=== PATIENT | male | born 1970 | race Caucasian/White ===

== ENCOUNTER 2017-07-01 02:03 | Emergency (ER) | payer BC ==
[2017-07-01] MEDS ORDERED: Aspirin 325 mg EC Tablets PO STA (02:49)
[2017-07-01] MEDS ORDERED: Alum-Mag Hydrox-Simethicone Susp (30 mL) PO STA (02:49)
[2017-07-01] MEDS ORDERED: Aluminum Hydroxide/Magnesium Hydroxide Susp (30 mL) ONE (02:58)
[2017-07-01 03:11] LABS: BASO # 0.1 K/uL (0.0-0.2); EOS # 0.2 K/uL (0.0-0.7); EOS % 2.6 % (0.0-4.0); HEMOGLOBIN 14.7 g/dL (12.0-18.0); LYMPH # 2.7 K/uL (1.0-4.3); LYMPH % 37.1 % (20.0-40.0); MEAN CELL VOLUME 83.4 fL (80.0-94.0); MEAN CORPUSCULAR HEMOGLOBIN 28.8 pg (27.0-31.0); MEAN CORPUSCULAR HGB CONC 34.5 g/dL (33.0-37.0); MEAN PLATELET VOLUME 8.8 fL (7.2-11.7); MONO # 0.6 K/uL (0.0-0.8); MONO % 8.7 % (0.0-10.0); NEUT # 3.6 K/uL (1.8-7.0); NEUT % 50.6 % (50.0-75.0); NRBC % 0.1 % (0.0-2.0); RBC 5.12 Mil/uL (4.40-5.90); RED CELL DISTRIBUTION WIDTH 13.2 % (11.5-14.5); WHITE BLOOD COUNT 7.2 K/uL (4.8-10.8)
[2017-07-01 03:31] LABS: ALBUMIN 4.1 g/dL (3.5-5.0)
[2017-07-01 03:34] LABS: ALB/GLOB RATIO 1.3 (1.0-2.1); ALT/SGPT 38 U/L (21-72); AST/SGOT 45 U/L (17-59); BLOOD UREA NITROGEN 20 mg/dL (9-20); GFR AFRICAN-AMERICAN > 60; GFR NON-AFRICAN AMERICAN > 60
[2017-07-01 03:35] LABS: CALCIUM 9.3 mg/dl (8.6-10.4)
[2017-07-01 03:43] LABS: B-TYPE NATRIURETIC PEPTIDE 32.8 pg/mL (0-450)
--- NOTE | 2017-07-01 04:05 | C.PDOC ---
History Of Present Illness burning substerenal chest discomfort no radiation no sob presents to ED approx annual for same. all prior w/u's neg Pt denies h/o or s/s of GERD Time Seen by Provider: 07/01/17 02:44 Chief Complaint (Nursing): Chest Pain History Per: Patient History/Exam Limitations: no limitations Onset/Duration Of Symptoms: Mins Current Symptoms Are (Timing): Better Context: Food Pain Scale Rating Of: 3 Quality: Burning Associated Symptoms: denies: Nausea, Dyspnea, Diaphoresis, Syncope Exacerbating Factors: None Past Medical History Reviewed: Nursing Documentation Vital Signs: Last Vital Signs Temp 98.4 F 07/01/17 02:19 Pulse 64 07/01/17 02:35 Resp 14 07/01/17 02:19 BP 146/77 07/01/17 02:19 Pulse Ox 98 07/01/17 02:19 - Medical History PMH: Anxiety, Depression, GERD, HTN Denies: Chronic Kidney Disease - [facility] Procedures CLOSED ENDOSCOPIC BIOPSY OF LARGE INTESTINE (08/11/13) Family History: States: Unknown Family Hx - Social History Hx Tobacco Use: No Hx Alcohol Use: No Hx Substance Use: No - Immunization History Hx Tetanus Toxoid Vaccination: No Hx Influenza Vaccination: Yes Hx Pneumococcal Vaccination: No Review Of Systems Except As Marked, All Systems Reviewed And Found Negative. Physical Exam - Physical Exam Appears: Well, Non-toxic, No Acute Distress Skin: Normal Color Head: Atraumatic Eye(s): bilateral: Normal Inspection Neck: Normal Chest: Symmetrical, No Tenderness Cardiovascular: Rhythm Regular Respiratory: Normal Breath Sounds Gastrointestinal/Abdominal: Normal Exam ED Course And Treatment - Laboratory Results Result Diagrams: 07/01/17 03:03 07/01/17 03:03 Lab Interpretation: Normal (trop neg.) ECG: Interpreted By Il ECG Rhythm: Sinus Rhythm ECG Interpretation: Normal Rate From EC O2 Sat by Pulse Oximetry: 98 - Radiology CXR: Interpreted by Il CXR Interpretation: Yes: No Acute Disease Progress Note: protonix IV and Maalox PO and ASA PO Reevaluation Time: 04:05 Reassessment Condition: Improved Medical Decision Making Medical Decision Making: more likely GERD than ACS, normal w/u with improvement of s/s w PPI/Maalox Disposition Doctor Will See Patient In The: Office Counseled Patient/Family Regarding: Studies Performed, Diagnosis - Disposition Disposition: HOME/ ROUTINE Disposition Time: 04:06 Condition: GOOD Forms: [facility] ([place]) - Clinical Impression Clinical Impression: Chest discomfort
[2017-07-01 04:37] VITALS: BP 136/76; PULSE 56; RESP 18; TEMP 97.7; O2SAT 96
--- NOTE | 2017-07-01 09:09 | RAD ---
PROCEDURE: CHEST RADIOGRAPH, 1 VIEW HISTORY: Shortness of breath COMPARISON: None available. FINDINGS: LUNGS: Mild venous congestion. Left hilar prominence. PLEURA: No pneumothorax or pleural fluid seen. CARDIOVASCULAR: Normal. OSSEOUS STRUCTURES: Postsurgical changes in the cervical spine. VISUALIZED UPPER ABDOMEN: Normal. OTHER FINDINGS: None. IMPRESSION: Mild venous congestion. Left hilar prominence.
--- NOTE | 2017-07-01 10:53 | CARD ---
APPROVED REPORT EKG Measurement Heart [id number] <Conclusion> Normal sinus rhythm Possible Left atrial enlargement Borderline ECG
== END 2017-07-01 04:28 | disposition home or self-care (01) ==
LOC: C.ER 02:03
DX: R07.9 Chest pain, unspecified (principal); I10 Essential (primary) hypertension; K21.9 Gastro-esophageal reflux disease without esophagitis
CPT/HCPCS: 71010; 80053; 83880; 84484; 85025; 93005; 96374; 99285; C9113

== ENCOUNTER 2019-03-23 16:52 | Inpatient (IN) | payer BC ==
[2019-03-23 18:58] LABS: BASO % 0.8 % (0.0-2.0); EOS # 0.4 K/uL (0.0-0.7); EOS % 7.4 % (0.0-4.0); HEMOGLOBIN 14.7 g/dL (12.0-18.0); LYMPH % 38.3 % (20.0-40.0); MEAN CELL VOLUME 85.8 fL (80.0-94.0); MEAN CORPUSCULAR HEMOGLOBIN 28.5 pg (27.0-31.0); MEAN CORPUSCULAR HGB CONC 33.2 g/dL (33.0-37.0); MEAN PLATELET VOLUME 8.6 fL (7.2-11.7); MONO # 0.5 K/uL (0.0-0.8); MONO % 10.4 % (0.0-10.0); NEUT # 2.3 K/uL (1.8-7.0); NEUT % 43.1 % (50.0-75.0); RBC 5.14 Mil/uL (4.40-5.90); RED CELL DISTRIBUTION WIDTH 14.1 % (11.5-14.5); WHITE BLOOD COUNT 5.3 K/uL (4.8-10.8)
--- NOTE | 2019-03-23 19:03 | C.PDOC ---
History Of Present Illness 49-year-old male presents to the ED for evaluation of bright red blood noted in stool after bowel movements for the past 3 weeks. Patient reports associated lightheadedness and palpitations. He has follow-up with his primary doctor r egarding symptoms. He was sent to [facility] to undergo a colonscopy, but did not undergo the procedure because he had a fever at the time. Patient states he is no longer febrile, and presents to the ED for further evaluation. He denies shortness of breath or experiencing similar symptoms in the past. Time Seen by Provider: 03/23/19 18:13 Chief Complaint (Nursing): Abdominal Pain History Per: Patient History/Exam Limitations: no limitations Onset/Duration Of Symptoms: Other (3 weeks ) Current Symptoms Are (Timing): Still Present Quality Of Discomfort: "Pain" Associated Symptoms: denies: Fever, Chills Additional History Per: Patient Past Medical History Reviewed: Historical Data, Nursing Documentation, Vital Signs Vital Signs: Last Vital Signs Temp 98.2 F 03/23/19 17:08 Pulse 60 03/23/19 17:08 Resp 18 03/23/19 17:08 BP 164/82 H 03/23/19 17:08 Pulse Ox 98 03/23/19 17:08 - Medical History PMH: Anxiety, Depression, GERD, HTN Denies: Chronic Kidney Disease Surgical History: No Surg Hx - [facility] Procedures CLOSED ENDOSCOPIC BIOPSY OF LARGE INTESTINE (08/11/13) Family History: States: Unknown Family Hx - Social History Hx Tobacco Use: No Hx Alcohol Use: No Hx Substance Use: No - Immunization History Hx Tetanus Toxoid Vaccination: No Hx Influenza Vaccination: Yes Hx Pneumococcal Vaccination: No Review Of Systems Except As Marked, All Systems Reviewed And Found Negative. Constitutional: Negative for: Fever Respiratory: Negative for: Shortness of Breath Physical Exam - Physical Exam Additional Physical Exam Comments: Constitutional: No acute distress. Head: Normocephalic. Atraumatic. Eyes: PERRL. ENT: Moist mucous membranes. Neck: Supple. Cardiovascular: Regular rate. Radial pulse 2+ bilaterally. Chest: No tenderness. Respiratory: Clear to auscultation bilaterally. GI: Soft. Diffuse abdominal tenderness with guarding. Nondistended. Back: No CVA tenderness. Musculoskeletal: No tenderness or swelling of extremities. Skin: No rash. Neurologic: Alert, no focal deficit. ED Course And Treatment - Laboratory Results Result Diagrams: 03/23/19 18:51 03/23/19 18:51 O2 Sat by Pulse Oximetry: 98 (on RA) Pulse Ox Interpretation: Normal Medical Decision Making Medical Decision Making: CT A/P Impression: IMPRESSION: 1. Diverticulosis coli of the left hemicolon with evidence of subtle acute diverticulitis in the lower descending-upper sigmoid regions. 2. Diffuse enteritis. 3. Mild hepatomegaly. Dr. Archibald accepts patient to his service, recommends Dr. Greer for GI. Disposition - Disposition Disposition: HOSPITALIZED Disposition Time: 21:18 Condition: FAIR Forms: [facility] (Citizen [place]) - Clinical Impression Clinical Impression: GI bleed, Acute diverticulitis - Scribe Statement The provider has reviewed the documentation as recorded by the Scribe (Sandhya Jc) Provider Attestation: All medical record entries made by the Scribe were at my direction and personally dictated by me. I have reviewed the chart and agree that the record accurately reflects my personal performance of the history, physical exam, medical decision making, and the department course for this patient. I have also personally directed, reviewed, and agree with the discharge instructions and disposition.
[2019-03-23 19:17] LABS: ALB/GLOB RATIO 1.5 (1.0-2.1); ALBUMIN 4.8 g/dL (3.5-5.0); ALT/SGPT 115 U/L (21-72); AST/SGOT 87 U/L (17-59); BLOOD UREA NITROGEN 12 mg/dL (9-20); CALCIUM 9.3 mg/dl (8.6-10.4); GFR NON-AFRICAN AMERICAN > 60; LIPASE 88 U/L (23-300)
[2019-03-23 19:21] LABS: URINE BILIRUBIN NEGATIVE (NEGATIVE); URINE BLOOD NEGATIVE (NEGATIVE); URINE CLARITY Clear (Clear); URINE COLOR Yellow (YELLOW); URINE GLUCOSE (UA) NORMAL (Normal); URINE LEUKOCYTE ESTERASE NEG Leu/uL (Negative); URINE PROTEIN NEGATIVE (NEGATIVE); URINE UROBILINOGEN NORMAL mg/dL (0.2-1.0)
[2019-03-23] MEDS ORDERED: Iodixanol 320 MG/ML 100 ML BOTTLE IV ONE (20:04)
[2019-03-23] MEDS ORDERED: Ciprofloxacin 400mg/200ml D5W 400 MG/200 ML BAG IVPB STA (21:23)
[2019-03-23] MEDS ORDERED: metroNIDAZOLE IV 500 mg/100 ml 500 MG/100 ML BAG IVPB STA (21:23)
[2019-03-23] MEDS ORDERED: Ciprofloxacin 400mg/200ml D5W 400 MG/200 ML BAG IVPB ONE (22:20)
[2019-03-23] MEDS ORDERED: metroNIDAZOLE IV 500 mg/100 ml 500 MG/100 ML BAG ONE (22:20)
[2019-03-23 23:15] LABS: INR 1.1; PROTHROMBIN TIME 12.1 SECONDS (9.7-12.2)
[2019-03-23] MEDS: Ciprofloxacin 400mg/200ml D5W 400 MG/200 ML BAG IVPB SCH (23:45)
[2019-03-24] MEDS: Dextrose 5%/0.45% NS 1,000 ML IV SCH ×3 (00:35→17:50)
[2019-03-24] MEDS: metroNIDAZOLE IV 500 mg/100 ml 500 MG/100 ML BAG IVPB SCH ×3 (00:36→15:45)
[2019-03-24 07:24] LABS: HEMOGLOBIN 14.4 g/dL (12.0-18.0); MEAN CELL VOLUME 86.1 fL (80.0-94.0); MEAN CORPUSCULAR HEMOGLOBIN 29.5 pg (27.0-31.0); MEAN CORPUSCULAR HGB CONC 34.3 g/dL (33.0-37.0); MEAN PLATELET VOLUME 8.7 fL (7.2-11.7); RBC 4.88 Mil/uL (4.40-5.90); RED CELL DISTRIBUTION WIDTH 13.8 % (11.5-14.5); WHITE BLOOD COUNT 5.7 K/uL (4.8-10.8)
[2019-03-24 07:49] LABS: BLOOD UREA NITROGEN 10 mg/dL (9-20); CALCIUM 9.4 mg/dl (8.6-10.4); GFR NON-AFRICAN AMERICAN > 60
--- NOTE | 2019-03-24 11:00 | CT ---
Date of service: 03/23/2019 PROCEDURE: CT Abdomen and Pelvis with contrast HISTORY: abd pain, gi bleed COMPARISON: CT abdomen and pelvis with contrast performed 08/11/13 TECHNIQUE: Contrast dose: 100 mL Visipaque 320 IV Radiation dose: Total exam DLP = 844.75 mGy-cm. This CT exam was performed using one or more of the following dose reduction techniques: Automated exposure control, adjustment of the mA and/or kV according to patient size, and/or use of iterative reconstruction technique. FINDINGS: Examination limited by patient motion. LOWER THORAX: No visible consolidation, pleural effusion, or pneumothorax. LIVER: Unremarkable. GALLBLADDER AND BILE DUCTS: Unremarkable. PANCREAS: Unremarkable. SPLEEN: Unremarkable. ADRENALS: Unremarkable. KIDNEYS AND URETERS: The kidneys enhance symmetrically. No hydronephrosis or obstructing calculus identified. VASCULATURE: No aortic aneurysm. No atherosclerotic calcification or mural plaque present. BOWEL: Stomach is nondistended. Lack of oral contrast limits evaluation for bowel pathology. Bowel loops appear within normal limits of caliber without evidence of obstruction. Moderate constipation. Diverticulosis without CT evidence of acute diverticulitis. APPENDIX: The appendix appears within normal limits of caliber. No secondary signs of acute appendicitis. PERITONEUM: No significant free fluid. No definite free air. LYMPH NODES: No bulky adenopathy identified. BLADDER: Unremarkable. REPRODUCTIVE: Unremarkable. BONES: No acute osseous abnormality is detected. OTHER FINDINGS: None. IMPRESSION: Images markedly degraded by patient motion. Diverticulosis without CT evidence of acute diverticulitis. Preliminary impression was provided by [facility].
[2019-03-24] MEDS ORDERED: Lidocaine Hydrochloride 5 ML INJ ONE (12:07)
[2019-03-24] MEDS ORDERED: Propofol 10 mg/ml Inj (20 ML) ONE ×2 (12:07→12:26)
[2019-03-24] MEDS: Ciprofloxacin 400mg/200ml D5W 400 MG/200 ML BAG IVPB SCH ×2 (12:53→13:33)
[2019-03-24 18:29] LABS: HEPATITIS B SURFACE AG Negative (NEGATIVE)
[2019-03-24 18:34] LABS: HEPATITIS A IGM NEGATIVE (NEGATIVE); HEPATITIS B CORE AB NEGATIVE (NEGATIVE)
[2019-03-24 18:47] LABS: HEPATITIS C ANTIBODY NEGATIVE (NEGATIVE)
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
[2019-03-25] MEDS: metroNIDAZOLE IV 500 mg/100 ml 500 MG/100 ML BAG IVPB SCH ×4 (00:25→23:55)
[2019-03-25] MEDS: Ciprofloxacin 400mg/200ml D5W 400 MG/200 ML BAG IVPB SCH ×3 (01:10→23:56)
[2019-03-25] MEDS: Dextrose 5%/0.45% NS 1,000 ML IV SCH (06:11)
[2019-03-25 06:47] LABS: BASO % 0.5 % (0.0-2.0); EOS # 0.2 K/uL (0.0-0.7); EOS % 2.6 % (0.0-4.0); HEMOGLOBIN 13.6 g/dL (12.0-18.0); LYMPH # 2.1 K/uL (1.0-4.3); LYMPH % 24.4 % (20.0-40.0); MEAN CELL VOLUME 85.7 fL (80.0-94.0); MEAN CORPUSCULAR HEMOGLOBIN 29.7 pg (27.0-31.0); MEAN CORPUSCULAR HGB CONC 34.7 g/dL (33.0-37.0); MEAN PLATELET VOLUME 8.5 fL (7.2-11.7); MONO # 0.5 K/uL (0.0-0.8); NEUT # 5.7 K/uL (1.8-7.0); NEUT % 66.5 % (50.0-75.0); NRBC % 0.1 % (0.0-2.0); RBC 4.6 Mil/uL (4.40-5.90); RED CELL DISTRIBUTION WIDTH 13.4 % (11.5-14.5); WHITE BLOOD COUNT 8.6 K/uL (4.8-10.8)
--- NOTE | 2019-03-25 07:19 | HP ---
CHIEF COMPLAINT: Bleeding per rectum and abdominal pain x3 weeks. HISTORY OF PRESENT ILLNESS: This is a 49-year-old male with no significant past medical history. For three weeks, he is having bright red blood per rectum and along with that he has lower abdominal pain. According to the patient, he feels lightheaded, weak, palpitations, and dizziness. 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 His colonoscopy was postponed because of an episode of fever. The patient now denies fever. He denies any history of chest pain. He denies any history of cough, sore throat, runny nose. He has nausea, no vomiting. He has generalized weakness. He denies any polyuria, polydipsia, polyphagia. He denies any history of hematuria, pyuria. He denies any sneezing, itchy eyes, itchy nose. There is abdominal pain, it is dull, it is in the pelvic area, no radiation to the back. It is continuous and it is mild, about 3/10. No fever. No chills. ALLERGIES: UNKNOWN ALLERGIES. PAST MEDICAL HISTORY: Anxiety, depression, GERD, and hypertension. SOCIAL HISTORY: Nonsmoker, non-ETOH user. CURRENT MEDICATIONS: None. PHYSICAL EXAMINATION: GENERAL: A middle-aged male in no acute distress. VITAL SIGNS: Blood pressure 164/82, pulse 60, respiratory rate 18, temperature 98.2. SKIN: Warm. Good turgor. No bruises. No purpura. No petechiae. No ecchymosis. HEENT: Atraumatic, normocephalic. Negative pallor. Negative jaundice. Extraocular movements are intact. NECK: Supple. No JVD. No lymph node. No thyromegaly. No carotid bruits. CHEST WALL: Bilateral symmetrical expansion. No masses. LUNGS: Bilaterally clear. No rale. No rhonchi. CARDIOVASCULAR SYSTEM: No heaves. No thrills. ABDOMEN: Soft, nontender. Bowel sounds are positive. RECTAL: Positive occult blood. No masses. Normal prostate. EXTREMITIES: No clubbing, cyanosis, or edema. CENTRAL NERVOUS SYSTEM: Awake, alert, oriented x3. ASSESSMENT: 1. Gastrointestinal bleed diverticulosis versus diverticulitis versus colon cancer versus colon polyp versus angiodysplasia. 2. Dehydration. 3. Anxiety. 4. Hypertension. PLAN: Admit. Detailed orders are written. Seen and examined. Red Archibald MD
--- NOTE | 2019-03-25 09:52 | PN ---
DATE: 03/25/2019 LOCATION: 351, bed B. SUBJECTIVE: This is a 49-year-old, male post upper endoscopy with biopsy yesterday, seen and examined in rounds without significant reported clinical changes with trace of rectal bleeding on and off but no reported chest pain, palpitation, or chills or fever. No reported hematemesis. Keeping in mind that the most recent done CT scan of the abdomen and pelvis was indicative of diverticulosis without CAT scan evidence of acute diverticulitis. The entire chart is reviewed including but not limited to the most recent lab and radiology study results, current and the previous medication list, current and the previous medical events and today's lab showed normal CBC, but subsequent drop of H and H and the patient recently had elevated liver function test for which hepatitis profile was performed, reported to be negative so far. PHYSICAL EXAMINATION: GENERAL: A 49-year-old female awake, alert, oriented. VITAL SIGNS: Afebrile with pulse of 64, respiratory rate 20 to 22, blood pressure 136/82. HEENT: Showed pale, dry oral mucous membrane. Nonicteric sclerae. LUNGS: Few scattered crepitation. Decreased air entry at bases. HEART: Positive S1 and S2. ABDOMEN: Soft with mild generalized tenderness. No mass or organomegaly. No rebound tenderness or guarding. There is especially midepigastric as well as left lower quadrant and the left mid quadrant tenderness, mild. RECTAL: Guaiac-positive stool was trace of fresh and old blood. EXTREMITIES: Without significant clubbing, cyanosis or edema. NEUROLOGIC: No reported new neurological deficits, sensory or motor. IMPRESSION: 1. Gastrointestinal bleeding with mild but subsequent drop in hemoglobin and hematocrit. 2. Peptic ulcer disease with multiple gastric nonbleeding ulcers and areas of gastritis by recent upper endoscopy. 3. Known history of hypertension, anxiety syndrome with depression. SUGGESTIONS: 1. Agree with your plan. 2. The patient for colonoscopy after adequate preparation at a.m. 3. Further recommendation to follow. Feli Silverio MD
[2019-03-25] MEDS ORDERED: Peg-Electrolyte Oral Soln 4L (Golytely) PO ONE (10:30)
[2019-03-25] MEDS ORDERED: Bisacodyl 5mg EC Tab PO ONE ×2 (17:00→22:00)
--- NOTE | 2019-03-25 21:40 | CP.PCM.PN ---
Subjective - Date & Time of Evaluation Date of Evaluation: 03/25/19 Time of Evaluation: 19:20 - Subjective Subjective: dict Objective - Vital Signs/Intake and Output Vital Signs (last 24 hours): Temp Pulse Resp BP Pulse Ox 98.5 F 60 20 132/80 98 03/25/19 08:00 03/25/19 08:00 03/25/19 08:00 03/25/19 08:00 03/25/19 08:00 Intake and Output: 03/25/19 03/26/19 18:59 06:59 Intake Total 1780 Balance 1780 - Medications Medications: Current Medications Ciprofloxacin (Cipro 400mg/200ml Dsw) 400 mg in 200 mls @ 133 mls/hr IVPB Q12H DOLORES; Protocol Last Admin: 03/25/19 11:35 Dose: 133 mls/hr Metronidazole (Flagyl) 500 mg in 100 mls @ 100 mls/hr IVPB Q8H DOLORES; Protocol Last Admin: 03/25/19 16:33 Dose: 100 mls/hr Dextrose/Sodium Chloride (Dextrose 5%/0.45% Ns 1000 Ml) 1,000 mls @ 100 mls/hr IV .Q10H DOLORES Last Admin: 03/25/19 06:11 Dose: 100 mls/hr Metoclopramide HCl (Reglan) 5 mg IVP Q6H DOLORES Stop: 03/27/19 23:59 Last Admin: 03/25/19 16:33 Dose: 5 mg Pantoprazole Sodium (Protonix Inj) 40 mg IVP DAILY DOLORES Last Admin: 03/25/19 11:00 Dose: 40 mg Pneumococcal Polyvalent Vaccine (Pneumovax 23 Vaccine) 0.5 ml IM .ONCE ONE Stop: 03/26/19 10:01 - Labs Labs: 03/25/19 06:34 03/24/19 07:13 PT 12.1 SECONDS (9.7-12.2) 03/23/19 23:02 INR 1.1 03/23/19 23:02 APTT 35.0 SECONDS (21-34) H 03/23/19 23:02
--- NOTE | 2019-03-26 02:23 | PN ---
DATE: 03/25/2019 SUBJECTIVE: The patient continues to have rectal bleeding, bright red with burning, itching, in perianal area. No fever. No chills. No shortness of breath. PHYSICAL EXAMINATION: VITAL SIGNS: Blood pressure 132/80, pulse 60, respiratory rate 20, temperature 98.5. LUNGS: Clear. No rales. No rhonchi. CARDIOVASCULAR: S1, S2, regular. ABDOMEN: Soft, nontender. Bowel sounds are positive. ASSESSMENT: Rectal bleed. Rule out diverticulosis, diverticulitis, angiodysplasia of the colon, colon polyp, colon cancer. PLAN: Continue proton pump inhibitor, colonoscopy, medical management, . Red Archibald MD
[2019-03-26] MEDS: Dextrose 5%/0.45% NS 1,000 ML IV SCH ×2 (02:30→11:03)
[2019-03-26 06:32] LABS: BASO % 0.6 % (0.0-2.0); EOS # 0.2 K/uL (0.0-0.7); EOS % 2.8 % (0.0-4.0); HEMOGLOBIN 13.7 g/dL (12.0-18.0); LYMPH % 30.5 % (20.0-40.0); MEAN CELL VOLUME 85.3 fL (80.0-94.0); MEAN CORPUSCULAR HGB CONC 33.9 g/dL (33.0-37.0); MEAN PLATELET VOLUME 8.4 fL (7.2-11.7); MONO # 0.5 K/uL (0.0-0.8); MONO % 8.1 % (0.0-10.0); NEUT # 3.8 K/uL (1.8-7.0); RBC 4.74 Mil/uL (4.40-5.90); RED CELL DISTRIBUTION WIDTH 13.7 % (11.5-14.5); WHITE BLOOD COUNT 6.6 K/uL (4.8-10.8)
[2019-03-26 07:01] LABS: ALB/GLOB RATIO 1.4 (1.0-2.1); ALBUMIN 3.8 g/dL (3.5-5.0); ALT/SGPT 56 U/L (21-72); AST/SGOT 33 U/L (17-59); BLOOD UREA NITROGEN 10 mg/dL (9-20); CALCIUM 8.8 mg/dl (8.6-10.4); GFR NON-AFRICAN AMERICAN > 60
[2019-03-26] MEDS: metroNIDAZOLE IV 500 mg/100 ml 500 MG/100 ML BAG IVPB SCH ×2 (07:35→16:15)
[2019-03-26] MEDS ORDERED: Pneumococcal 23-Valent Vaccine IM ONE (10:00)
[2019-03-26] MEDS: Ciprofloxacin 400mg/200ml D5W 400 MG/200 ML BAG IVPB SCH (10:53)
[2019-03-26] MEDS ORDERED: Propofol 10 mg/ml Inj (20 ML) ONE (11:34)
[2019-03-26] MEDS ORDERED: Lidocaine Hydrochloride 5 ML INJ ONE (11:50)
[2019-03-26 16:57] VITALS: BP 127/72; PULSE 65; RESP 20; TEMP 98.2; O2SAT 98
--- NOTE | 2019-03-26 17:19 | CP.PCM.PN ---
Subjective - Date & Time of Evaluation Date of Evaluation: 03/26/19 Time of Evaluation: 17:18 - Subjective Subjective: PATIENT SEEN AND EXAMINED AT THE BEDSIDE Objective - Vital Signs/Intake and Output Vital Signs (last 24 hours): Temp Pulse Resp BP Pulse Ox 98.2 F 65 20 127/72 98 03/26/19 16:00 03/26/19 16:00 03/26/19 16:00 03/26/19 16:00 03/26/19 16:00 Intake and Output: 03/26/19 03/26/19 06:59 18:59 Intake Total 3300 850 Balance 3300 850 - Medications Medications: Current Medications Ciprofloxacin (Cipro 400mg/200ml Dsw) 400 mg in 200 mls @ 133 mls/hr IVPB Q12H DOLORES; Protocol Last Admin: 03/26/19 10:53 Dose: 133 mls/hr Metronidazole (Flagyl) 500 mg in 100 mls @ 100 mls/hr IVPB Q8H [facility]OLOR[facility]; Protocol Last Admin: 03/26/19 16:15 Dose: 100 mls/hr Dextrose/Sodium Chloride (Dextrose 5%/0.45% Ns 1000 Ml) 1,000 mls @ 100 mls/hr IV .Q10H DOLORES Last Admin: 03/26/19 11:03 Dose: Not Given Metoclopramide HCl (Reglan) 5 mg IVP Q6H [facility]OLORES Stop: 03/27/19 23:59 Last Admin: 03/26/19 04:00 Dose: 5 mg Pantoprazole Sodium (Protonix Inj) 40 mg IVP DAILY DOLORES Last Admin: 03/26/19 09:32 Dose: 40 mg - Labs Labs: 03/26/19 06:26 03/26/19 06:26 PT 12.1 SECONDS (9.7-12.2) 03/23/19 23:02 INR 1.1 03/23/19 23:02 APTT 35.0 SECONDS (21-34) H 03/23/19 23:02 Assessment and Plan - Assessment and Plan (Free Text) Assessment: FOLLOW UP WITH DR LANCASTER IN HIS OFFICE FOLLOW UP WITH DR SANTOS IN HIS OFFICE CONTINUE HOME MEDICATION NEW PRESCRIPTION GIVEN PROTONIX 40 MG PO DIALY ACTIVITY TOLERATED CALL DR LANCASTER OR GO TO THE EMEGENCY ROOM IF SYMPTOM RETURN OR WORSENING
[2019-03-26] MEDS ORDERED: Potassium Chloride 20 mEq ER Tab PO ONE (18:45)
--- NOTE | 2019-03-26 21:34 | CP.PCM.DIS ---
Provider - Provider Date of Admission: 03/25/19 11:44 Attending physician: Red Archibald MD Consults: 03/23/19 21:22 Gastroenterology Consult Routine Comment: Consulting Provider: Feli Greer Consulting Physician: Feli Greer Reason for Consult: diverticulitis, gi bleed Time Spent in preparation of Discharge (in minutes): 30 Hospital Course - Lab Results Lab Results: Micro Results 03/24/19 00:32 Blood-Venous Blood Culture - Preliminary NO GROWTH AFTER 48 HOURS 03/24/19 00:32 Blood-Venous Blood Culture - Preliminary NO GROWTH AFTER 48 HOURS 03/23/19 19:03 Urine Random Urine Culture - Final No Growth (<1,000 CFU/ML) Most Recent Lab Values WBC 6.6 K/uL (4.8-10.8) 03/26/19 06:26 RBC 4.74 Mil/uL (4.40-5.90) 03/26/19 06:26 Hgb 13.7 g/dL (12.0-18.0) 03/26/19 06:26 Hct 40.5 % (35.0-51.0) 03/26/19 06:26 MCV 85.3 fL (80.0-94.0) 03/26/19 06:26 MCH 29.0 pg (27.0-31.0) 03/26/19 06:26 MCHC 33.9 g/dL (33.0-37.0) 03/26/19 06:26 RDW 13.7 % (11.5-14.5) 03/26/19 06:26 Plt Count 298 K/uL (130-400) 03/26/19 06:26 MPV 8.4 fL (7.2-11.7) 03/26/19 06:26 Neut % (Auto) 58.0 % (50.0-75.0) 03/26/19 06:26 Lymph % (Auto) 30.5 % (20.0-40.0) 03/26/19 06:26 [place] % (Auto) 8.1 % (0.0-10.0) 03/26/19 06:26 Eos % (Auto) 2.8 % (0.0-4.0) 03/26/19 06:26 Baso % (Auto) 0.6 % (0.0-2.0) 03/26/19 06:26 Neut # (Auto) 3.8 K/uL (1.8-7.0) 03/26/19 06:26 Lymph # (Auto) 2.0 K/uL (1.0-4.3) 03/26/19 06:26 [place] # (Auto) 0.5 K/uL (0.0-0.8) 03/26/19 06:26 Eos # (Auto) 0.2 K/uL (0.0-0.7) 03/26/19 06:26 Baso # (Auto) 0.0 K/uL (0.0-0.2) 03/26/19 06:26 PT 12.1 SECONDS (9.7-12.2) 03/23/19 23:02 INR 1.1 03/23/19 23:02 APTT 35.0 SECONDS (21-34) H 03/23/19 23:02 Sodium 139 mmol/L (132-148) 03/26/19 06:26 Potassium 3.4 mmol/L (3.6-5.2) L 03/26/19 06:26 Chloride 100 mmol/L (98-107) 03/26/19 06:26 Carbon Dioxide 26 mmol/L (22-30) 03/26/19 06:26 Anion Gap 16 (10-20) 03/26/19 06:26 BUN 10 mg/dL (9-20) 03/26/19 06:26 Creatinine 0.7 mg/dL (0.8-1.5) L 03/26/19 06:26 Est GFR ( Amer) > 60 03/26/19 06:26 Est GFR (Non-Af Amer) > 60 03/26/19 06:26 Random Glucose 104 mg/dL (75-110) 03/26/19 06:26 Calcium 8.8 mg/dl (8.6-10.4) 03/26/19 06:26 Total Bilirubin 0.9 mg/dL (0.2-1.3) 03/26/19 06:26 AST 33 U/L (17-59) 03/26/19 06:26 ALT 56 U/L (21-72) 03/26/19 06:26 Alkaline Phosphatase 125 U/L (38-126) 03/26/19 06:26 Total Protein 6.4 g/dL (6.3-8.3) 03/26/19 06:26 Albumin 3.8 g/dL (3.5-5.0) 03/26/19 06:26 Globulin 2.6 gm/dL (2.2-3.9) 03/26/19 06:26 Albumin/Globulin Ratio 1.4 (1.0-2.1) 03/26/19 06:26 Lipase 88 U/L (23-300) 03/23/19 18:51 Alpha Fetoprotein 4.4 ng/mL (0.0-7.5) 03/25/19 12:00 Carcinoembryonic Ag 0.6 ng/mL (0-3.0) 03/25/19 12:00 Urine Color Yellow (YELLOW) 03/23/19 19:03 Urine Clarity Clear (Clear) 03/23/19 19:03 Urine pH 5.0 (5.0-8.0) 03/23/19 19:03 Ur Specific [place] 1.018 (1.003-1.030) 03/23/19 19:03 Urine Protein Negative mg/dL (NEGATIVE) 03/23/19 19:03 Urine Glucose (UA) Normal mg/dL (Normal) 03/23/19 19:03 Urine Ketones Negative mg/dL (NEGATIVE) 03/23/19 19:03 Urine Blood Negative (NEGATIVE) 03/23/19 19:03 Urine Nitrate Negative (NEGATIVE) 03/23/19 19:03 Urine Bilirubin Negative (NEGATIVE) 03/23/19 19:03 Urine Urobilinogen Normal mg/dL (0.2-1.0) 03/23/19 19:03 Ur Leukocyte Esterase Neg Evaristo/uL (Negative) 03/23/19 19:03 Urine WBC (Auto) < 1 /hpf (0-5) 03/23/19 19:03 Urine RBC (Auto) 1 /hpf (0-3) 03/23/19 19:03 Hepatitis A IgM Ab Negative (NEGATIVE) 03/24/19 17:34 Hep Bs Antigen Negative (NEGATIVE) 03/24/19 17:34 Hep B Core IgM Ab Negative (NEGATIVE) 03/24/19 17:34 Hepatitis C Antibody Negative (NEGATIVE) 03/24/19 17:34 Infectious [place] Assay Negative (NEGATIVE) 03/25/19 06:34 Blood Type O POSITIVE 03/23/19 18:51 Antibody Screen Negative 03/23/19 18:51 Discharge Plan - Discharge Medications Prescriptions: Pantoprazole [Protonix] 40 mg PO DAILY #30 ect - Follow Up Plan Condition: GOOD Disposition: HOME/ ROUTINE Instructions: Diverticulitis (DC), Gastrointestinal Bleeding (DC), Pantoprazole Additional Instructions: FOLLOW UP WITH DR ARCHIBALD IN HIS OFFICE FOLLOW UP WITH DR GREER IN HIS OFFICE CONTINUE HOME MEDICATION NEW PRESCRIPTION GIVEN PROTONIX 40 MG PO DIALY ACTIVITY TOLERATED CALL DR ARCHIBALD OR GO TO THE EMEGENCY ROOM IF SYMPTOM RETURN OR WORSENING Referrals: Feli Greer [Staff Provider] - Red Archibald MD [Staff Provider] -
== END 2019-03-26 18:43 | disposition home or self-care (01) | DRG 384 ==
LOC: C.ER 16:52 → C.9E 21:23 → C.3T 21:50 → OBSVTOIN 03-25 11:44
PROVIDERS: ADMIT Internal Medicine; ATTEND Internal Medicine
PROC: 0DB68ZX Excision of Stomach, Via Natural or Artificial Opening Endoscopic, Diagnostic (ICD-10-PCS; 2019-03-24)
PROC: 0DJD8ZZ Inspection of Lower Intestinal Tract, Via Natural or Artificial Opening Endoscopic (ICD-10-PCS; principal; 2019-03-26 11:28)
DX: K27.9 Peptic ulcer, site unspecified, unspecified as acute or chronic, without hemorrhage or perforation (principal); K29.70 Gastritis, unspecified, without bleeding; K57.90 Diverticulosis of intestine, part unspecified, without perforation or abscess without bleeding; K64.8 Other hemorrhoids; I10 Essential (primary) hypertension; F41.9 Anxiety disorder, unspecified; E86.0 Dehydration; K44.9 Diaphragmatic hernia without obstruction or gangrene